=== PATIENT | female | born 1995 | race Caucasian/White ===

== ENCOUNTER 2017-03-28 17:21 | Emergency (ER) | payer BC ==
[~2017-03-28] VITALS: Ht 165.1 cm; Wt 49.4 kg
[~2017-03-28 17:21] MED LIST: AZEL30SP NAE; BCPILLS PO; BIOT1CAP8 PO; CETICHW4 PO; MNC100 PO
[2017-03-28 17:32] VITALS: TEMP 36.7; Ht 165.1 cm; Wt 49.4 kg
[2017-03-28] MEDS ORDERED: TOPI25TA99 PO (18:17)
[2017-03-28] MEDS ORDERED: ABL/5 PO (18:17)
--- NOTE | 2017-03-28 18:45 | EMERGENCY ROOM VISIT NOTE ---
History Report prepared by Juan Jose: Nicolas Church Under the Supervision of: Dr. Germán Dominguez M.D. First contact with patient: 18:34 Chief Complaint: MENTAL HEALTH EVALUATION Stated Complaint: MENTAL HEALTH/SUBSTANCE ABUSE History of Present Illness The patient is a 21 year old female [employer] student with a history of bipolar disorder who presents to the Emergency Room with complaints of worsening depression over the past week. She states that she takes medications for her mental health issues, but has not been taking them regularly of the past week. The patient states that she has been abusing alcohol recently, and per the patient's friends, the patient has been deteriorating, and they needed the patient to come here. Per the patient's friends, the patient has not been eating much for a while, which has been worsening, and the patient has not told her psychiatrist here about her eating habits. The patient has been noted to be worried about maintaining a certain weight. The patient states that she intentionally not eats as a way of control. She notes that she has a history of cutting. She denies any current suicidal or homicidal ideations. The patient also denies hearing abnormal voices, fevers, chills, cough, or congestion. Source of History: patient, friend Onset: Over past week Position: other (global - depression) Symptom Intensity: friends concerned Quality: other (not eating much) Timing: worsening Associated Symptoms: No fevers, No chills, No cough (or congestion) Note: Associated symptoms: Abusing alcohol, not taking prescribed medications well. Denies HI or SI. Review of Systems See HPI for pertinent positives and negatives. A total of ten systems were reviewed and were otherwise negative. Past Medical & Surgical Medical Problems: (1) Asthma Family History Cancer Diabetes mellitus Hypertension Social History Smoking Status: Never Smoker Alcohol Use: heavy Marital Status: single Housing Status: lives with roommate Occupation Status: [employer] student Current/Historical Medications Scheduled Aripiprazole (Abilify), 5 MG PO DAILY Control Pills ( Control Pills), 1 TAB PO DAILY Topiramate (Topamax ), 25 MG PO BID Scheduled PRN Azelastine Hcl-Fluticasone Pro (Dymista), 1 SPRY TY BID PRN for ALLERGIC REACTION Allergies Coded Allergies: Animal Dander (Unverified Allergy, Severe, ITCHY WATERY EYES, 03/28/17) Uncoded Allergies: SEASONAL (Allergy, Intermediate, ., 03/28/17) Physical Exam Vital Signs Date Time Temp Pulse Resp B/P (MAP) Pulse Ox O2 Delivery O2 Flow Rate FiO2 03/28/17 20:53 73 15 119/74 100 Room Air 03/28/17 19:14 71 16 124/79 99 Room Air 03/28/17 17:32 36.7 77 16 129/82 97 Room Air Physical Exam GENERAL: Awake, alert, thin-appearing but otherwise well-appearing, in no distress HENT: Normocephalic, atraumatic. Oropharynx unremarkable. EYES: Normal conjunctiva. Sclera non-icteric. NECK: Supple. No nuchal rigidity. FROM. No JVD. RESPIRATORY: Clear to auscultation. CARDIAC: Regular rate, normal rhythm. Extremities warm and well perfused. Pulses equal. ABDOMEN: Soft, non-distended. No tenderness to palpation. No rebound or guarding. No masses. RECTAL: Deferred. MUSCULOSKELETAL: Chest examination reveals no tenderness. The back is symmetrical on inspection without obvious abnormality. There is no CVA tenderness to palpation. No joint edema. LOWER EXTREMITIES: Calves are equal size bilaterally and non-tender. No edema. No discoloration. NEURO: Normal sensorium. No sensory or motor deficits noted. SKIN: No rash or jaundice noted. PSYCH: Denies suicidal or homicidal ideations. Medical Decision & Procedures Laboratory Results 03/28/17 18:59 Red Blood Count 4.66, Mean Corpuscular Volume 85.6, Mean Corpuscular Hemoglobin 29.0, Mean Corpuscular Hemoglobin Concent 33.8, Mean Platelet Volume 9.6, Neutrophils (%) (Auto) 57.7, Lymphocytes (%) (Auto) 31.4, Monocytes (%) (Auto) 9.3, Eosinophils (%) (Auto) 1.1, Basophils (%) (Auto) 0.3, Neutrophils # (Auto) 3.66, Lymphocytes # (Auto) 1.99, Monocytes # (Auto) 0.59, Eosinophils # (Auto) 0.07, Basophils # (Auto) 0.02 03/28/17 18:59 Test 03/28/17 18:48 03/28/17 18:57 03/28/17 18:59 Urine Color DK YELLOW Urine Appearance CLOUDY (CLEAR) Urine pH 7.5 (4.5-7.5) Urine Specific [place] 1.029 (1.000-1.030) Urine Protein NEG (NEG) Urine Glucose (UA) NEG (NEG) Urine Ketones 3+ (NEG) Urine Occult Blood NEG (NEG) Urine Nitrite NEG (NEG) Urine Bilirubin NEG (NEG) Urine Urobilinogen NEG (NEG) Urine Leukocyte Esterase MODERATE (NEG) Urine WBC (Auto) 10-30 /hpf (0-5) Urine RBC (Auto) 10-30 /hpf (0-4) Urine Hyaline Casts (Auto) 5-10 /lpf (0-5) Urine Epithelial Cells (Auto) >30 /lpf (0-5) Urine Bacteria (Auto) 3+ (NEG) Urine Test NEG (NEG) Urine Opiates Screen NEG (NEG) Urine Methadone, Qualitative NEG (NEG) Urine Barbiturates NEG (NEG) Urine Phencyclidine (PCP) Level NEG (NEG) Ur Amphetamine/Methamphetamine NEG (NEG) MDMA (Ecstasy) Screen NEG (NEG) Urine Benzodiazepines Screen POS (NEG) Urine Cocaine Metabolite NEG (NEG) Urine Marijuana (THC) NEG (NEG) Bedside Glucose 103 mg/dl (70-90) White Blood Count 6.34 K/uL (4.8-10.8) Red Blood Count 4.66 M/uL (4.2-5.4) Hemoglobin 13.5 g/dL (12.0-16.0) Hematocrit 39.9 % (37-47) Mean Corpuscular Volume 85.6 fL (80-100) Mean Corpuscular Hemoglobin 29.0 pg (25-34) Mean Corpuscular Hemoglobin Concent 33.8 g/dl (32-36) Platelet Count 311 K/uL (130-400) Mean Platelet Volume 9.6 fL (7.4-10.4) Neutrophils (%) (Auto) 57.7 % Lymphocytes (%) (Auto) 31.4 % Monocytes (%) (Auto) 9.3 % Eosinophils (%) (Auto) 1.1 % Basophils (%) (Auto) 0.3 % Neutrophils # (Auto) 3.66 K/uL (1.4-6.5) Lymphocytes # (Auto) 1.99 K/uL (1.2-3.4) Monocytes # (Auto) 0.59 K/uL (0.11-0.59) Eosinophils # (Auto) 0.07 K/uL (0-0.5) Basophils # (Auto) 0.02 K/uL (0-0.2) RDW Standard Deviation 45.0 fL (36.4-46.3) RDW Coefficient of Variation 14.5 % (11.5-14.5) Immature Granulocyte % (Auto) 0.2 % Immature Granulocyte # (Auto) 0.01 K/uL (0.00-0.02) Anion Gap 7.0 mmol/L (3-11) Est Creatinine Clear Calc Drug Dose 69.4 ml/min Estimated GFR () 93.3 Estimated GFR (Non- 80.5 BUN/Creatinine Ratio 7.3 (10-20) Calcium Level 8.9 mg/dl (8.5-10.1) Phosphorus Level 1.7 mg/dl (2.5-4.9) Magnesium Level 2.1 mg/dl (1.8-2.4) Total Bilirubin 0.8 mg/dl (0.2-1) Direct Bilirubin 0.2 mg/dl (0-0.2) Aspartate Amino Transf (AST/SGOT) 16 U/L (15-37) Alanine Aminotransferase (ALT/SGPT) 25 U/L (12-78) Alkaline Phosphatase 37 U/L (45-117) Total Protein 7.9 gm/dl (6.4-8.2) Albumin 3.9 gm/dl (3.4-5.0) Globulin 4.0 gm/dl (2.5-4.0) Albumin/Globulin Ratio 1.0 (0.9-2) Thyroid Stimulating Hormone (TSH) 1.800 uIu/ml (0.300-4.500) Ethyl Alcohol mg/dL < 3.0 mg/dl (0-3) Laboratory results reviewed by me ECG Indication: toxicologic Rate (beats per minute): 82 Rhythm: normal sinus Findings: no acute ischemic change, other (normal axis) ED Course 1834: The patient was evaluated in room A8. A complete history and physical exam was performed. 2037: I was notified by the psychiatric manager case management that the patient signed a release for her psychiatric provider. She has an appointment with her psychiatrist and she will go to the appointment. The patient is agreeable with the plan, and she will be discharged. Medical Decision I reviewed the patient's past medical history, medications, and the nursing notes as described above. Differential diagnosis: Etiologies such as mood disorder, infection, hypoglycemia, electrolyte abnormalities, cardiac sources, intracerebral event, toxicologic, neurologic, as well as others were entertained. The patient is 21 y/o woman with a pmhx of depression who presents to the emergency department accompanied by her friends who are concerned for the patient's worsening depression, increased alcohol abuse, noncompliance with her medications, and worsening anorexia in attempt to "maintain a certain weight" per HPI. On arrival the patient is thin appearing but well-appearing in NAD, AFVSS. Labs unremarkable. EKG unremarkable with normal intervals. Patient medically cleared. Psych CM further interviewed patient and no concerns for safety at this time given the patient denies SI/HI and has good outpatient f/u with local psychiatrist. Patient signed waiver so we may send information for today's visit to her provider so she may obtain prompt f/u regarding her current behaviors. Of note, UA dirty and patient denies any urinary sx. Will wait for cx to inform ?need for treatment. Findings and plan for follow-up reviewed with patient. Patient agreeable and d/c'd per discharge instructions. Medication Reconcilliation Current Medication List: was personally reviewed by me Blood Pressure Screening Patient's blood pressure: Normal blood pressure Impression Primary Impression: Depression Additional Impression: Anorexia nervosa Scribe Attestation The scribe's documentation has been prepared under my direction and personally reviewed by me in its entirety. I confirm that the note above accurately reflects all work, treatment, procedures, and medical decision making performed by me. Departure Information Dispostion Home / Self-Care Referrals No Doctor, Assigned (PCP) Patient Instructions Addiction Alcohol, Depression Causes, ED Alcohol Abuse, ED Anorexia Nervosa, My [facility] Additional Instructions Please follow up with your psychiatrist next week for re-evaluation for your depression and eating disorder. You should not abuse alcohol or drugs. Otherwise, your exam, EKG, and lab results did not show signs of an emergent condition at this time. Return to the emergency department for worsening symptoms as described in the accompanying instructions. Problem Qualifiers
[2017-03-28 19:22] LABS: BASO % 0.3 %; BASO ABS # 0.02 K/uL (0-0.2); EOS % 1.1 %; EOS ABS # 0.07 K/uL (0-0.5); HEMATOCRIT 39.9 % (37-47); HEMOGLOBIN 13.5 g/dL (12.0-16.0); IG# 0.01 K/uL (0.00-0.02); LYMPH % 31.4 %; LYMPH ABS # 1.99 K/uL (1.2-3.4); MEAN CELL VOLUME 85.6 fL (80-100); MEAN CORPUSCULAR HGB CONC 33.8 g/dl (32-36); MEAN PLATELET VOLUME 9.6 fL (7.4-10.4); MONO % 9.3 %; MONO ABS # 0.59 K/uL (0.11-0.59); NEUT % 57.7 %; NEUT ABS # 3.66 K/uL (1.4-6.5); PLATELET COUNT 311 K/uL (130-400); RED CELL DISTRIBUTION WIDTH CV 14.5 % (11.5-14.5); WHITE BLOOD COUNT 6.34 K/uL (4.8-10.8)
[2017-03-28 20:15] LABS: ALBUMIN 3.9 gm/dl (3.4-5.0); CALCIUM 8.9 mg/dl (8.5-10.1); POTASSIUM 3.3 mmol/L (3.5-5.1)
[2017-03-28 20:26] LABS: PHOSPHORUS 1.7 mg/dl (2.5-4.9); TOTAL PROTEIN 7.9 gm/dl (6.4-8.2)
[2017-03-28 20:53] VITALS: BP 119/74; PULSE 73; O2SAT 100
== END 2017-03-28 21:21 | disposition home or self-care (01) ==
LOC: C.EDB 17:26 → C.EDA 21:21
DX: F32.9 Major depressive disorder, single episode, unspecified (principal); F50.00 Anorexia nervosa, unspecified; J45.909 Unspecified asthma, uncomplicated; Z79.899 Other long term (current) drug therapy; Z91.09 Other allergy status, other than to drugs and biological substances; Z80.9 Family history of malignant neoplasm, unspecified; Z83.3 Family history of diabetes mellitus; Z82.49 Family history of ischemic heart disease and other diseases of the circulatory system

== ENCOUNTER 2017-04-20 04:00 | Inpatient (IN) | payer BC, OTHER ==
[~2017-04-20] VITALS: Ht 165.1 cm; Wt 49.2 kg
[~2017-04-20 04:00] MED LIST changes: +ABL/5 PO; -BIOT1CAP8 PO; -CETICHW4 PO; -MNC100 PO; +TOPI25TA99 PO
--- NOTE | 2017-04-20 04:18 | EMERGENCY ROOM VISIT NOTE ---
History Report prepared by Juan Jose: Suhail Bhatia Under the Supervision of: Dr. Cristina Bell D.O. First contact with patient: 04:03 Chief Complaint: OVERDOSE (INTENTIONAL) Stated Complaint: OVERDOSE/ETOH History of Present Illness HPI limited due to an altered mental state secondary to alcohol intoxication. The patient is a 21 year old female who presents to the Emergency Room with complaints of a recent overdose. Nurse states that the patient took a "fistful" of Seroquel after she got home from a night of drinking. Nurse adds that the patient had 4 alcoholic mixed drinks prior to taking the Seroquel. Patient states she was trying to commit suicide. Patient states that she tried to commit suicide because "she was upset with herself for falling into her urges". Patient states that she normally drinks on the weekends and in excessive amounts. She states that she went out drinking tonight with her friends. Patient adds that she told her friend about taking the Seroquel and that her friend called an ambulance. Patient states that she lives by herself. Patient states that her parents are aware of her mental health problems. She adds that they do not know that she is at the currently at the hospital. Patient states that the Seroquel is hers. She states that she does not use it anymore because she was prescribed another medication. Patient denies a history of suicidal ideations. Patient states she has never been an inpatient at a psychiatric institute. She states that she has been seen as an outpatient. She states that her psychiatrist is Martina Clifford PA-C. Patient denies any abdominal pain or falls. Patient denies a history of diabetes or heart problems. She states that she is a [employer] student. Patient states that she is from [place], [place]. Source of History: patient History Limited By: AMS (secondary to alcohol intoxication) Review of Systems ROS limited due to altered mental state secondary to alcohol intoxication. Past Medical & Surgical Medical Problems: (1) Asthma Bipolar Disorder Family History Cancer Diabetes mellitus Hypertension Social History Smoking Status: Never Smoker Alcohol Use: heavy Marital Status: single Housing Status: lives with roommate Occupation Status: [employer] student Current/Historical Medications Scheduled Aripiprazole (Abilify), 5 MG PO DAILY Control Pills ( Control Pills), 1 TAB PO DAILY Cetirizine (Zyrtec), 10 MG PO DAILY Multivitamin (Multivitamin), 1 TAB PO DAILY Topiramate (Topamax ), 25 MG PO BID Allergies Coded Allergies: Animal Dander (Unverified Allergy, Severe, ITCHY WATERY EYES, 04/20/17) Uncoded Allergies: SEASONAL (Allergy, Intermediate, ., 03/28/17) Physical Exam Vital Signs Date Time Temp Pulse Resp B/P (MAP) Pulse Ox O2 Delivery O2 Flow Rate FiO2 04/20/17 09:30 91 18 100/62 96 Room Air 04/20/17 08:48 91 16 112/69 95 Room Air 04/20/17 08:17 103 04/20/17 07:54 103 16 123/59 95 Room Air 04/20/17 07:01 88 14 93/43 95 04/20/17 06:31 96 14 102/49 94 04/20/17 06:01 89 14 94/48 95 04/20/17 05:51 89 15 96 04/20/17 05:36 89 14 96 04/20/17 05:31 95/45 04/20/17 05:21 91 14 96 04/20/17 05:06 101 17 98 04/20/17 05:01 114/70 04/20/17 04:51 117 16 96 04/20/17 04:46 36.6 116 99 Room Air 04/20/17 04:36 108 17 98 04/20/17 04:31 122/68 04/20/17 04:30 124 14 98 Room Air 04/20/17 04:15 138 17 04/20/17 04:10 132 04/20/17 04:01 134/85 99 Room Air Physical Exam General: Patient appears intoxicated and has slightly slurred speech. HEENT: Head - normocephalic and atraumatic Pupils are equal, round, and reactive to light. Extraocular eye muscles are intact, and moderate sclera injection. Nose - moist nasal mucosa without discharge. Mouth - moist buccal mucosa. Oropharynx is nonerythematous and there is no tonsillar exudate or edema noted. Neck: Supple; no JVD, nuchal rigidity, cervical lymphadenopathy. Heart:Tachycardic rate and rhythm. There is a normal S1 and S2 with no murmurs , clicks, or gallops appreciated. Lungs: Clear to auscultation bilaterally with no wheezes, rales, or rhonchi. Abdomen: Soft, completely nontender, nondistended, with good bowel sounds. There are no palpable pulsatile masses or hepatosplenomegaly. There is no guarding, rigidity, or rebound noted. Extremities: No evidence of cyanosis, clubbing, or edema. There are easily palpable peripheral pulses. Skin: warm and dry with good turgor and no rashes. Psych: Admits to suicide attempt by overdose. Medical Decision & Procedures Laboratory Results 04/20/17 04:15 04/20/17 04:15 Test 04/20/17 04:15 04/20/17 04:55 Red Blood Count 4.31 M/uL (4.2-5.4) Mean Corpuscular Volume 85.8 fL (80-100) Mean Corpuscular Hemoglobin 29.2 pg (25-34) Mean Corpuscular Hemoglobin Concent 34.1 g/dl (32-36) RDW Standard Deviation 46.0 fL (36.4-46.3) RDW Coefficient of Variation 14.7 % (11.5-14.5) Mean Platelet Volume 9.3 fL (7.4-10.4) Anion Gap 11.0 mmol/L (3-11) Est Creatinine Clear Calc Drug Dose 84.6 ml/min Estimated GFR () 116.8 Estimated GFR (Non- 100.8 BUN/Creatinine Ratio 8.9 (10-20) Calcium Level 8.0 mg/dl (8.5-10.1) Total Bilirubin 0.2 mg/dl (0.2-1) Direct Bilirubin < 0.1 mg/dl (0-0.2) Aspartate Amino Transf (AST/SGOT) 16 U/L (15-37) Alanine Aminotransferase (ALT/SGPT) 23 U/L (12-78) Alkaline Phosphatase 38 U/L (45-117) Total Protein 7.1 gm/dl (6.4-8.2) Albumin 3.4 gm/dl (3.4-5.0) Thyroid Stimulating Hormone (TSH) 3.310 uIu/ml (0.300-4.500) Salicylates Level < 1.7 mg/dl (2.8-20) Acetaminophen Level < 2 ug/ml (10-30) Ethyl Alcohol mg/dL 235.0 mg/dl (0-3) Urine Color YELLOW Urine Appearance CLEAR (CLEAR) Urine pH 6.0 (4.5-7.5) Urine Specific [place] 1.017 (1.000-1.030) Urine Protein NEG (NEG) Urine Glucose (UA) NEG (NEG) Urine Ketones NEG (NEG) Urine Occult Blood TRACE (NEG) Urine Nitrite NEG (NEG) Urine Bilirubin NEG (NEG) Urine Urobilinogen NEG (NEG) Urine Leukocyte Esterase TRACE (NEG) Urine WBC (Auto) 1-5 /hpf (0-5) Urine RBC (Auto) 0-4 /hpf (0-4) Urine Hyaline Casts (Auto) 0 /lpf (0-5) Urine Epithelial Cells (Auto) >30 /lpf (0-5) Urine Bacteria (Auto) 1+ (NEG) Urine Test NEG (NEG) Urine Opiates Screen NEG (NEG) Urine Methadone, Qualitative NEG (NEG) Urine Barbiturates NEG (NEG) Urine Phencyclidine (PCP) Level NEG (NEG) Ur Amphetamine/Methamphetamine NEG (NEG) MDMA (Ecstasy) Screen NEG (NEG) Urine Benzodiazepines Screen NEG (NEG) Urine Cocaine Metabolite NEG (NEG) Urine Marijuana (THC) NEG (NEG) Laboratory results per my review. ECG Indication: altered mental status Rate (beats per minute): 101 Rhythm: sinus tachycardia Findings: no acute ischemic change, no ectopy ED Course 0415: Past medical records reviewed. The patient was evaluated in room B6. A complete history and physical exam was performed. Labs were drawn as above. The patient was observed on a personnel monitor and pulse oximeter. She had a twelve-lead EKG as described above. 0435: Patient's electrocardiogram was interpreted by me. 0522: Patient is sound asleep with stable vital signs. Patient's friends are present now and they have voiced significant concern for her safety. Friends plan to be present for patient's psychiatric evaluation. They state that if the patient does not voluntarily sign herself in then they will do a petitioning statement. 0700: The patient is sleeping at this time and remains hemodynamically stable. 0830: Patient was signed out to Dr. Dominguez at change of shifts. Medical Decision The patient is a 21 year old female who presents to the ED with a recent overdose. Differential diagnosis includes intentional overdose, suicide attempt , mood disorder, exacerbation of bipolar disorder, and alcohol overdose. Lab results show alcohol = 235, negative tox screen, Tylenol and Aspirin levels are negative, normal TSH and LFTs, glucose = 123, normal renal function, negative , urinalysis shows 1+ bacteria with trace blood and leukocyte esterase, white blood cell count normal, and normal H&H. The patient has been seen here in our emergency department previously for depression. It seems that she attempted to harm herself tonight by drinking alcohol and taking a handful of Seroquel. Poison Control Center was contacted and the patient was observed for this polysubstance overdose. Once she is medically cleared, she will be evaluated by psychiatry for inpatient psychiatric care. Medication Reconcilliation Current Medication List: was personally reviewed by me Blood Pressure Screening Patient's blood pressure: Normal blood pressure Blood pressure disposition: Did not require urgent referral Impression Primary Impression: Polysubstance overdose Additional Impression: Suicide attempt Scribe Attestation The scribe's documentation has been prepared under my direction and personally reviewed by me in its entirety. I confirm that the note above accurately reflects all work, treatment, procedures, and medical decision making performed by me. Departure Information Dispostion Still a Patient Referrals No Doctor, Assigned (PCP) Forms HOME CARE DOCUMENTATION FORM, IMPORTANT VISIT INFORMATION, WORK / SCHOOL INSTRUCTIONS Patient Instructions My [facility] Problem Qualifiers Primary Impression: Polysubstance overdose Encounter type: initial encounter Injury intent: accidental or unintentional Qualified Codes: T50.901A - Poisoning by unspecified drugs, medicaments and biological substances, accidental (unintentional), initial encounter
[2017-04-20] MEDS ORDERED: CETI10TA84 PO (04:33)
[2017-04-20 04:34] LABS: HEMOGLOBIN 12.6 g/dL (12.0-16.0); MEAN CELL VOLUME 85.8 fL (80-100); MEAN CORPUSCULAR HEMOGLOBIN 29.2 pg (25-34); MEAN CORPUSCULAR HGB CONC 34.1 g/dl (32-36); MEAN PLATELET VOLUME 9.3 fL (7.4-10.4); PLATELET COUNT 327 K/uL (130-400); RED CELL DISTRIBUTION WIDTH CV 14.7 % (11.5-14.5); WHITE BLOOD COUNT 9.21 K/uL (4.8-10.8)
[2017-04-20] MEDS ORDERED: MULT-506 PO (04:34)
[2017-04-20 04:53] LABS: ALBUMIN 3.4 gm/dl (3.4-5.0); ALT/SGPT 23 U/L (12-78); AST/SGOT 16 U/L (15-37); BLOOD UREA NITROGEN 7 mg/dl (7-18); CARBON DIOXIDE 21 mmol/L (21-32); CREATININE 0.83 mg/dl (0.60-1.20); GLUCOSE 123 mg/dl (70-99); POTASSIUM 3.2 mmol/L (3.5-5.1); SODIUM 141 mmol/L (136-145)
[2017-04-20 05:04] LABS: ALKALINE PHOSPHATASE 38 U/L (45-117); TOTAL PROTEIN 7.1 gm/dl (6.4-8.2)
[2017-04-20] MEDS ORDERED: ALUMINUM/MAGNESIUM SUSP 30 ML UDC PO PRN (13:15)
[2017-04-20] MEDS ORDERED: MAGNESIUM HYDROXIDE SUSP 30 ML UDC PO PRN (13:15)
[2017-04-20] MEDS ORDERED: ACETAMINOPHEN 325 MG TAB PO PRN (13:15)
[2017-04-20] MEDS ORDERED: LORAZEPAM 1 MG TAB PO PRN (13:15)
[2017-04-20] MEDS ORDERED: hydrOXYzine HCL 25 MG TAB PO PRN ×2 (13:15)
[2017-04-20] MEDS ORDERED: SODIUM CHLORIDE 0.65% NA SOLN 45 ML (OCEAN) PRN (13:15)
[2017-04-20] MEDS ORDERED: BISMUTH SUBSALICYLATE PER ML OMNICELL CHARGE PO PRN (13:15)
[2017-04-20 13:29] VITALS: BP 122/84; PULSE 99; TEMP 36.9; Ht 165.1 cm; Wt 49.2 kg
[2017-04-20] MEDS ORDERED: POTASSIUM CHLORIDE 10 MEQ TABCR PO STA (13:32)
[2017-04-20 14:06] VITALS: O2SAT 98
[2017-04-20] MEDS ORDERED: INFLUENZA ADMINISTRATION CHARGE ONE (16:00)
[2017-04-20] MEDS ORDERED: INFLUENZA VIRUS QUAD VACCINE 0.5 ML SYR IM. ONE (16:00)
[2017-04-20 16:04] VITALS: BP 117/80; PULSE 88; TEMP 36.9
[2017-04-20 20:48] VITALS: BP 121/77; PULSE 83; TEMP 36.9
[2017-04-20] MEDS: TOPIRAMATE 25 MG TAB PO SCH (21:05)
[2017-04-20] MEDS ORDERED: NURSING VERBAL MED ORDER ONE (21:15)
[2017-04-21 06:53] VITALS: BP_SYST 115; BP_SYST 119; BP_DIAS 75; BP_DIAS 84; PULSE 65; PULSE 79; TEMP 36.8
[2017-04-21 07:55] VITALS: BP 118/70; PULSE 74; TEMP 36.9
[2017-04-21] MEDS ORDERED: ETHINYL ESTRAD PO SCH (09:00)
[2017-04-21] MEDS ORDERED: NORETHINDRONE PO SCH (09:00)
[2017-04-21] MEDS: TOPIRAMATE 25 MG TAB PO SCH (09:21)
[2017-04-21] MEDS: CETIRIZINE HCL 10 MG TAB PO SCH (09:21)
[2017-04-21] MEDS: ARIPIprazole TAB 5 MG TAB PO SCH (09:21)
[2017-04-21] MEDS: MULTIVITAMIN TAB PO SCH (09:21)
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
[2017-04-21 12:50] VITALS: BP 130/83; PULSE 108; TEMP 36.6
[2017-04-21] MEDS: NORETHINDRONE PO SCH (17:08)
[2017-04-21] MEDS: ETHINYL ESTRAD PO SCH (17:08)
[2017-04-21 17:12] VITALS: BP 121/84; PULSE 81; TEMP 36.6
[2017-04-21 20:44] VITALS: BP 138/86; PULSE 103; TEMP 36.8
[2017-04-22 07:03] VITALS: BP_SYST 106; BP_SYST 110; BP_DIAS 67; BP_DIAS 71; PULSE 68; PULSE 76; TEMP 37
[2017-04-22 08:37] VITALS: BP 143/88; PULSE 73; TEMP 36.8
[2017-04-22] MEDS: CETIRIZINE HCL 10 MG TAB PO SCH (08:38)
[2017-04-22] MEDS: MULTIVITAMIN TAB PO SCH (08:38)
[2017-04-22] MEDS: ARIPIprazole TAB 5 MG TAB PO SCH (08:38)
[2017-04-22 12:27] VITALS: BP 119/83; PULSE 78; TEMP 36.6
--- NOTE | 2017-04-22 13:26 | Psychiatric Progress Notes ---
Progress Note Date of Service Apr 22, 2017. Interval History 21-year-old [employer] student admitted to our unit voluntarily following a toxic ingestion of Seroquel and alcohol. Chief Complaint "Less bored". Subjective Patient was seen & assessed interval progress reviewed with Treatment Team. The patient says that she is adjusting to the unit and relating better to her peers. They are banding together during free time over cards to pass the time. She says that she is regretful of her suicide attempt, saying that she wants to live and now realizes that she has friends and family who support her. Her mother drove up last evening and her father will be coming today for a family meeting later this afternoon. She thinks that her parents were not surprised by her hospitalization, knowing that she had been struggling with depression. She is renewing her efforts to go without alcohol moving forward. She said that she was without alcohol for 3 week in March. She went to the bars with her friends, but chose not to drink, even when someone would offer her "just a sip". She is trying to get past her breakup by telling herself that she has to work on herself before she can be healthy enough to be in a relationship. She denies side effects to meds. Denies anxiety or jitteriness. Review of Systems Constitutional: No fever, No chills, No sweats, No weight loss, No weakness, No fatigue, No problem reported ENT: No hearing loss, No unusual epistaxis, No nasal symptoms, No sore throat, No tinnitus, No dental problems, No trouble swallowing, No problem reported Respiratory: No cough, No sputum, No wheezing, No shortness of breath, No dyspnea on exertion, No dyspnea at rest, No hemoptysis, No problem reported Cardiovascular: No chest pain, No orthopnea, No PND, No edema, No claudication , No palpitations, No problem reported Abdomen: No pain, No nausea, No vomiting, No diarrhea, No constipation, No GI bleeding, No problem reported Musculoskeletal: No joint pain, No muscle pain, No swelling, No calf pain, No problem reported Neurologic: No memory loss, No paralysis, No weakness, No numbness/tingling, No vertigo, No balance problems, No problem reported Psychiatric: + depression symptoms (improving) Integumentary: No rash, No itch, No new/changing skin lesions, No color change , No bleeding, No problem reported Sleep Information Total Hours of Sleep: 7.00 Meal Information Percent of Breakfast Consumed: 100 Percent of Lunch Consumed: 75 Percent of Dinner Consumed: 100 Mental Status Exam During interview pt is: alert and oriented, cooperative Appearance: appropriately dressed, appropriately groomed Eye contact is: good Motor behavior is: no abnormal motor movements Speech: normal in rate, rhythm & volume Affect: depressed, blunted Mood is: depressed, anxious Thought process: goal directed Thought content: reality based without delusions Suicidal thought are: present, Plan: present (status post Seroquel overdose) Homicidal thoughts are: denied Hallucinations: denies auditory, denies visual Cognition: memory grossly intact (with the exception of some of the events leading to hospitalization due to alcohol ingestion), attention grossly intact, language grossly intact Intelligence estimated to be: average Insight: impaired Judgement: impaired Impression Adjusting to the support and structure of the milieu. Tolerating initial doses of lamictal and ongoing abilify. Family meeting scheduled for this afternoon with parents. Nursing stated that parents want her to return home, so this will need to be discussed as she wants to finish her semester and complete her degree. Plan (1) bipolar 2 disorder, depressed, severe, without 2/5 - Continue Abilify 5 mg daily for now but reevaluated after obtaining outpatient records - Discontinue Topamax as a mood stabilizer in favor of Lamictal 25 mg daily, titrating as tolerated. Risks, benefits, alternatives have been reviewed and accepted including risk for Perez-Arvin syndrome - Add Zoloft 25 mg daily to target mood and anxiety, with caution to activation in view of bipolar diagnosis - Continue use of Vistaril when necessary for anxiety. Unclear at this time if anxiety represents a chronic generalized anxiety or whether this is related only to her times of depression we will continue to evaluate. - Every 15 minute checks for safety - Encourage participation in group and individual counseling - Obtain outpatient records from an coordinate aftercare with her current providers - Assist the patient to learn and utilize healthy coping strategies - Family meeting if indicated 2/6 - Continue current meds - Family meeting this afternoon. (2) Alcohol abuse 2/5 - Abstain from alcohol for the foreseeable future - Recommend outpatient substance use treatment - The patient's AUDIT score suggests problematic drinking (Zone III WHO). Brief intervention was offered and accepted Intervention (if performed) was greater than 5 min in length. Brief interventions include: 1. Assess Readiness to Quit, 2. Advise: Help Patient to Reduce or Abstain from Alcohol, 3. Agree: Set Specific, Feasible Goals, 4. Assist: Anticipate barriers, Problem-Solving Solutions. Social work to 5. Arrange: Referrals to appropriate treatment. Summary of intervention: The patient is in precontemplation stage with regards to transtheoretical model of change. The patient is advised to decrease alcohol consumption due to depressant effects and risk of interactions with prescription medications. The patient agreed to stopping her drinking and will be provided with recovery materials to continue to education self on how to cope with their condition without drinking. Dr. Ashley Devlin has personally been involved in the review of the above case and the development of recommendations. Discharge / Aftercare Planning Primary Care Physician: Name: Dr. Alfie Prather Psychiatrist: Name: Martina Johnson Date of Appointment: May 13, 2017 Time of Appointment: 8:45 am Appointment Notes: [address] [facility] [address] Therapist: Name: OokbeeRola Thomas Date of Appointment: Apr 28, 2017 Time of Appointment: 3:00 pm Appointment Notes: [address] [address] Visit Code E&M Code: 85866 Inventory Assets Strengths: Intelligence, desire to get better Needs: To abstain from alcohol and any other abusable substance Risk Factors Assessment : Yes /single/: Yes Higher / Fall in social status: No Health problems: No Mental Health Diagnoses: Yes Substance use disorders: Yes Previous attempt: Yes Previous psychiatric stay: No Hopelessness: No Smoker: No Protective Factors Assessment Bahai beliefs: No : No Responsible for young children: No Employed: No Stable relationships: No Supportive family: Yes Good rapport with provider: Yes Data Vital Signs Last 24 Hrs: Date Time Temp Pulse Resp B/P (MAP) Pulse Ox O2 Delivery O2 Flow Rate FiO2 04/22/17 08:37 36.8 73 16 143/88 04/22/17 07:03 37.0 76 16 106/67 68 110/71 04/21/17 20:44 36.8 103 16 138/86 04/21/17 17:12 36.6 81 16 121/84 04/21/17 12:50 36.6 108 16 130/83 Meds Administered Last 24 Hrs: Meds Administered (Past 24Hrs) Medications (Trade) Dose Ordered Sig/Mindy Route Start Time Stop Time Status Last Admin Dose Admin Aripiprazole (Abilify Tab) 5 mg DAILY PO 04/21/17 09:00 05/21/17 08:59 04/22/17 08:38 5 MG Cetirizine HCl (zyrTEC TAB) 10 mg DAILY PO 04/21/17 09:00 05/21/17 08:59 04/22/17 08:38 10 MG Multivitamins (Multivitamin Tab) 1 tab DAILY PO 04/21/17 09:00 05/21/17 08:59 04/22/17 08:38 1 TAB Topiramate (Topamax Tab) 25 mg BID PO 04/20/17 22:00 04/21/17 11:15 DC 04/21/17 09:21 25 MG Potassium Chloride (Klor-Con M10) 40 meq NOW STAT PO 04/20/17 13:32 04/20/17 13:33 DC 04/20/17 14:01 40 MEQ Ethinyl Estradiol/ Norethindrone ( (21 Day)) 1 tab DAILY PO 04/21/17 09:00 04/21/17 09:00 DC 04/20/17 21:12 1 TAB Ethinyl Estradiol/ Norethindrone ( (21 Day)) 1 tab DAILY@1700 PO 04/21/17 17:00 05/21/17 16:59 04/21/17 17:08 1 TAB Lamotrigine (Lamictal Tab) 25 mg HS PO 04/21/17 22:00 05/21/17 21:59 04/21/17 22:42 25 MG Lab Results Last 24 Hrs: 04/20/17 04:15 04/20/17 04:15 Test 04/20/17 04:15 04/20/17 04:55 Red Blood Count 4.31 M/uL (4.2-5.4) Mean Corpuscular Volume 85.8 fL (80-100) Mean Corpuscular Hemoglobin 29.2 pg (25-34) Mean Corpuscular Hemoglobin Concent 34.1 g/dl (32-36) RDW Standard Deviation 46.0 fL (36.4-46.3) RDW Coefficient of Variation 14.7 % (11.5-14.5) Mean Platelet Volume 9.3 fL (7.4-10.4) Anion Gap 11.0 mmol/L (3-11) Est Creatinine Clear Calc Drug Dose 84.6 ml/min Estimated GFR () 116.8 Estimated GFR (Non- 100.8 BUN/Creatinine Ratio 8.9 (10-20) Calcium Level 8.0 mg/dl (8.5-10.1) Total Bilirubin 0.2 mg/dl (0.2-1) Direct Bilirubin < 0.1 mg/dl (0-0.2) Aspartate Amino Transf (AST/SGOT) 16 U/L (15-37) Alanine Aminotransferase (ALT/SGPT) 23 U/L (12-78) Alkaline Phosphatase 38 U/L (45-117) Total Protein 7.1 gm/dl (6.4-8.2) Albumin 3.4 gm/dl (3.4-5.0) Thyroid Stimulating Hormone (TSH) 3.310 uIu/ml (0.300-4.500) Salicylates Level < 1.7 mg/dl (2.8-20) Acetaminophen Level < 2 ug/ml (10-30) Ethyl Alcohol mg/dL 235.0 mg/dl (0-3) Urine Color YELLOW Urine Appearance CLEAR (CLEAR) Urine pH 6.0 (4.5-7.5) Urine Specific [place] 1.017 (1.000-1.030) Urine Protein NEG (NEG) Urine Glucose (UA) NEG (NEG) Urine Ketones NEG (NEG) Urine Occult Blood TRACE (NEG) Urine Nitrite NEG (NEG) Urine Bilirubin NEG (NEG) Urine Urobilinogen NEG (NEG) Urine Leukocyte Esterase TRACE (NEG) Urine WBC (Auto) 1-5 /hpf (0-5) Urine RBC (Auto) 0-4 /hpf (0-4) Urine Hyaline Casts (Auto) 0 /lpf (0-5) Urine Epithelial Cells (Auto) >30 /lpf (0-5) Urine Bacteria (Auto) 1+ (NEG) Urine Test NEG (NEG) Urine Opiates Screen NEG (NEG) Urine Methadone, Qualitative NEG (NEG) Urine Barbiturates NEG (NEG) Urine Phencyclidine (PCP) Level NEG (NEG) Ur Amphetamine/Methamphetamine NEG (NEG) MDMA (Ecstasy) Screen NEG (NEG) Urine Benzodiazepines Screen NEG (NEG) Urine Cocaine Metabolite NEG (NEG) Urine Marijuana (THC) NEG (NEG)
[2017-04-22] MEDS ORDERED: NURSING VERBAL MED ORDER ONE (16:00)
[2017-04-22 17:10] VITALS: BP 134/93; PULSE 86; TEMP 36.8
[2017-04-22] MEDS: ETHINYL ESTRAD PO SCH (17:13)
[2017-04-22] MEDS: NORETHINDRONE PO SCH (17:13)
[2017-04-22 21:42] VITALS: BP 124/85; PULSE 83; TEMP 36.8
[2017-04-22] MEDS: RETIN A EXT SCH (21:47)
[2017-04-23 06:56] VITALS: BP_SYST 105; BP_SYST 119; BP_DIAS 69; BP_DIAS 85; PULSE 61; PULSE 64; TEMP 36.8
[2017-04-23] MEDS: CETIRIZINE HCL 10 MG TAB PO SCH (08:58)
[2017-04-23] MEDS: MULTIVITAMIN TAB PO SCH (08:58)
[2017-04-23] MEDS: ARIPIprazole TAB 5 MG TAB PO SCH (08:58)
--- NOTE | 2017-04-23 13:34 | Psychiatric Progress Notes ---
Progress Note Date of Service Apr 23, 2017. Interval History 21-year-old [employer] student admitted to our unit voluntarily following a toxic ingestion of Seroquel and alcohol. Chief Complaint "I think well". Subjective Patient was seen & assessed interval progress reviewed with Treatment Team. Staff report she had a family meeting with her parents yesterday, who are supportive. The patient felt the meeting went well, and was pleased that her parents were receptive to her desire to stay in school, as they initially wanted her to withdrawal. Today the patient reports she thinks she is doing well, her mood is improving, and she is tolerating meds well. She thinks her meeting with parents went well, notes she doesn't like telling them specifics about her life, and felt they didn't understand this, but thinks she was able to explain it to them in the meeting. She denies SI, and is working on healthier coping skills. Sleep Information Total Hours of Sleep: 6.50 Meal Information Percent of Breakfast Consumed: 100 Percent of Lunch Consumed: 75 Percent of Dinner Consumed: 100 Mental Status Exam During interview pt is: alert and oriented, cooperative Appearance: appropriately dressed, appropriately groomed Eye contact is: good Motor behavior is: no abnormal motor movements Speech: normal in rate, rhythm & volume Affect: blunted Mood is: other ("better") Thought process: goal directed Thought content: reality based without delusions Suicidal thought are: denied Homicidal thoughts are: denied Hallucinations: denies auditory, denies visual Cognition: memory grossly intact (with the exception of some of the events leading to hospitalization due to alcohol ingestion), attention grossly intact, language grossly intact Intelligence estimated to be: average Insight: impaired Judgement: impaired Impression Improving with respect to mood, had good meeting with parents and working on healthier coping skills. Tolerating medications well. Plan (1) bipolar 2 disorder, depressed, severe, without 2/5 - Continue Abilify 5 mg daily for now but reevaluated after obtaining outpatient records - Discontinue Topamax as a mood stabilizer in favor of Lamictal 25 mg daily, titrating as tolerated. Risks, benefits, alternatives have been reviewed and accepted including risk for Perez-Arvin syndrome - Add Zoloft 25 mg daily to target mood and anxiety, with caution to activation in view of bipolar diagnosis - Continue use of Vistaril when necessary for anxiety. Unclear at this time if anxiety represents a chronic generalized anxiety or whether this is related only to her times of depression we will continue to evaluate. - Every 15 minute checks for safety - Encourage participation in group and individual counseling - Obtain outpatient records from an coordinate aftercare with her current providers - Assist the patient to learn and utilize healthy coping strategies - Family meeting if indicated 2/6 - Continue current meds - Family meeting this afternoon. 2/6 - Continue current medications. (2) Alcohol abuse 2/5 - Abstain from alcohol for the foreseeable future - Recommend outpatient substance use treatment - The patient's AUDIT score suggests problematic drinking (Zone III WHO). Brief intervention was offered and accepted Intervention (if performed) was greater than 5 min in length. Brief interventions include: 1. Assess Readiness to Quit, 2. Advise: Help Patient to Reduce or Abstain from Alcohol, 3. Agree: Set Specific, Feasible Goals, 4. Assist: Anticipate barriers, Problem-Solving Solutions. Social work to 5. Arrange: Referrals to appropriate treatment. Summary of intervention: The patient is in precontemplation stage with regards to transtheoretical model of change. The patient is advised to decrease alcohol consumption due to depressant effects and risk of interactions with prescription medications. The patient agreed to stopping her drinking and will be provided with recovery materials to continue to education self on how to cope with their condition without drinking. Discharge / Aftercare Planning Primary Care Physician: Name: Dr. Alfie Prather Psychiatrist: Name: Martina Johnson Date of Appointment: May 13, 2017 Time of Appointment: 8:45 am Appointment Notes: [address] [facility] [place] [address] Therapist: Name: Rola Cuenca Date of Appointment: Apr 28, 2017 Time of Appointment: 3:00 pm Appointment Notes: [address] [facility] [address] [place] [address] Visit Code E&M Code: 66087 Inventory Assets Strengths: Intelligence, desire to get better Needs: To abstain from alcohol and any other abusable substance Risk Factors Assessment : Yes /single/: Yes Higher / Fall in social status: No Health problems: No Mental Health Diagnoses: Yes Substance use disorders: Yes Previous attempt: Yes Previous psychiatric stay: No Hopelessness: No Smoker: No Protective Factors Assessment Sabianism beliefs: No : No Responsible for young children: No Employed: No Stable relationships: No Supportive family: Yes Good rapport with provider: Yes Data Vital Signs Last 24 Hrs: Date Time Temp Pulse Resp B/P (MAP) Pulse Ox O2 Delivery O2 Flow Rate FiO2 04/23/17 06:56 36.8 64 16 105/69 61 119/85 04/22/17 21:42 36.8 83 18 124/85 04/22/17 17:10 36.8 86 16 134/93 Meds Administered Last 24 Hrs: Meds Administered (Past 24Hrs) Medications (Trade) Dose Ordered Sig/Mindy Route Start Time Stop Time Status Last Admin Dose Admin Ethinyl Estradiol/ Norethindrone (Junel (21 Day)) 1 tab DAILY@1700 PO 04/21/17 17:00 05/21/17 16:59 04/22/17 17:13 1 TAB Lamotrigine (Lamictal Tab) 25 mg HS PO 04/21/17 22:00 05/21/17 21:59 04/22/17 21:47 25 MG Non-Formulary Medication (Non-Formulary Patient'S Own Med) 1 ea HS EXT 04/22/17 22:00 05/22/17 21:59 04/22/17 21:47 1 EA
[2017-04-23] MEDS: ETHINYL ESTRAD PO SCH (17:04)
[2017-04-23] MEDS: NORETHINDRONE PO SCH (17:04)
[2017-04-23] MEDS: RETIN A EXT SCH (21:22)
[2017-04-24 06:55] VITALS: BP_SYST 114; BP_SYST 99; BP_DIAS 61; BP_DIAS 72; PULSE 67; PULSE 94; TEMP 36.9
[2017-04-24] MEDS: ARIPIprazole TAB 5 MG TAB PO SCH (08:47)
[2017-04-24] MEDS: MULTIVITAMIN TAB PO SCH (08:47)
[2017-04-24] MEDS: CETIRIZINE HCL 10 MG TAB PO SCH (08:47)
[2017-04-24] MEDS ORDERED: LMC25 PO (08:56)
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
[2017-04-24] MEDS ORDERED: DESTROY THIS MEDICATION SCH (11:15)
== END 2017-04-24 11:02 | disposition home or self-care (01) | DRG 885 ==
LOC: EDBD 04:00 → C.EDB 04:01 → C.MHU 13:16
PROVIDERS: ADMIT Psychiatry & Neurology Psychiatry; ATTEND Psychiatry & Neurology Psychiatry
DX: F31.89 Other bipolar disorder (principal); R45.851 Suicidal ideations; L51.1 Stevens-Johnson syndrome; T43.595A Adverse effect of other antipsychotics and neuroleptics, initial encounter; T51.0X2A Toxic effect of ethanol, intentional self-harm, initial encounter; F10.129 Alcohol abuse with intoxication, unspecified; Y90.9 Presence of alcohol in blood, level not specified; J45.909 Unspecified asthma, uncomplicated; Z79.899 Other long term (current) drug therapy; Z91.048 Other nonmedicinal substance allergy status; Z82.49 Family history of ischemic heart disease and other diseases of the circulatory system; Z83.3 Family history of diabetes mellitus; Z81.8 Family history of other mental and behavioral disorders

== ENCOUNTER 2017-06-20 01:48 | Emergency (ER) | payer BC ==
[~2017-06-20] VITALS: Ht 165.1 cm; Wt 57.5 kg
[~2017-06-20 01:48] MED LIST changes: -AZEL30SP NAE; +CETI10TA84 PO; +LMC25 PO; +MULT-506 PO; -TOPI25TA99 PO
[2017-06-20 01:56] VITALS: Ht 165.1 cm; Wt 57.5 kg
[2017-06-20 02:30] LABS: CREATININE 0.8 mg/dl (0.60-1.20)
[2017-06-20 02:31] LABS: CALCIUM 8.8 mg/dl (8.5-10.1)
--- NOTE | 2017-06-20 03:15 | EMERGENCY ROOM VISIT NOTE ---
History First contact with patient: 01:50 Chief Complaint: ALCOHOL OVERDOSE Stated Complaint: ALCOHOL Nursing Triage Summary: patient was drinking liquor today. was picked up by police after having a fall. has abrasions to bilateral knees, right side of face and left hand. Patient cooperative History of Present Illness The patient is a 21 year old female who presents to the Emergency Room via EMS for evaluation of alcohol intoxication. The patient arrives with a friend at bedside. The patient admits to drinking a significant amount of liquor tonight. She was having difficulty walking and her friend was helping her, and she suite and they both fell. The patient then fell again while walking with another friend. Both falls were from standing and she sustained some abrasions to both of her knees and the right forehead. She denies any drug use. She denies any complaints at this time. The patient reports a history of bipolar disorder but is otherwise healthy. Review of Systems A complete 10 point review of systems was reviewed with the patient with pertinent positives and negatives as per history of present illness. All else were negative. Past Medical/Surgical History Medical Problems: (1) Asthma (2) Bipolar disorder (3) Bipolar I disorder, most recent episode depressed, severe without psychotic features Family History Cancer Diabetes mellitus Hypertension Social History Smoking Status: Never Smoker Alcohol Use: heavy Marital Status: single Housing Status: lives with roommate Occupation Status: [employer] student Current/Historical Medications Scheduled Aripiprazole (Abilify), 5 MG PO DAILY Control Pills ( Control Pills), 1 TAB PO DAILY Cetirizine (Zyrtec), 10 MG PO DAILY Lamotrigine (Lamictal), 50 MG PO HS Multivitamin (Multivitamin), 1 TAB PO DAILY Physical Exam Vital Signs Date Time Temp Pulse Resp B/P (MAP) Pulse Ox O2 Delivery O2 Flow Rate FiO2 06/20/17 11:17 92 117/95 100 06/20/17 09:38 99 16 105/66 98 Room Air 06/20/17 08:31 107 18 107/70 99 Room Air 06/20/17 07:54 36.6 06/20/17 07:14 80 18 105/70 98 Room Air 06/20/17 06:00 99 16 94/61 96 Room Air 06/20/17 05:51 101 06/20/17 05:00 89 16 95/53 96 Room Air 06/20/17 04:00 88 16 100/56 96 Room Air 06/20/17 03:13 98 16 123/76 98 Room Air 06/20/17 02:14 119 06/20/17 01:56 104 12 117/88 100 Room Air Physical Exam VITALS: Vitals are noted on the nurse's note and reviewed by myself. Vital signs stable. GENERAL: This is a 21-year-old female, sitting up in bed, appears to be visibly intoxicated, smells of ETOH. SKIN: The skin was without erythema, edema, or bruising. HEAD: Normocephalic atraumatic. EARS: External auditory canals clear. No hemotympanum. EYES: Pupils equal round and reactive to light and accommodation. NOSE: No deformities noted. MOUTH: No loose or chipped teeth. NECK: No cervical spine tenderness. HEART: Regular rate and rhythm without murmurs gallops or rubs. LUNGS: Clear to auscultation bilaterally without wheezes, rales or rhonchi. ABDOMEN: Soft, nontender. MUSCULOSKELETAL: Full range of motion throughout. Strength intact throughout. NEURO: Patient was alert and oriented to person place and time. Speech slurred. Gross sensation intact. Patient cooperative with examiner and answers all questions appropriately. Medical Decision & Procedures Laboratory Results 06/20/17 02:03 Test 06/20/17 02:03 Anion Gap 5.0 mmol/L (3-11) Est Creatinine Clear Calc Drug Dose 100.1 ml/min Estimated GFR () 122.2 Estimated GFR (Non- 105.4 BUN/Creatinine Ratio 10.3 (10-20) Calcium Level 8.8 mg/dl (8.5-10.1) Human Chorionic Gonadotropin, Qual NEG (NEG) Ethyl Alcohol mg/dL 353.0 mg/dl (0-3) Medications Administered Medications (Trade) Dose Ordered Sig/Mindy Route Start Time Stop Time Status Last Admin Dose Admin Ondansetron HCl (Zofran Odt) 4 mg ONE ONCE PO 06/20/17 03:30 06/20/17 03:31 DC 06/20/17 03:25 4 MG Potassium Chloride (Klor-Con M10) 40 meq NOW STAT PO 06/20/17 10:55 06/20/17 10:56 DC 06/20/17 11:09 40 MEQ Medical Decision Differential diagnosis includes alcohol intoxication, drug use, infection, hypoglycemia, head trauma, among others. The patient is a 21-year-old female who presents today for evaluation of probable alcohol intoxication. Labs revealed an alcohol of 353. Kidney function was found to be within normal limits. Labs were otherwise unremarkable. There is no evidence of significant head trauma or infection on exam. Patient did complain of some vague hand pain, although it was difficult to elicit the source of the patient's pain due to her intoxication. For this reason, I deferred imaging until the patient was able to be reevaluated in the morning. Care of the patient was signed out to Ayden Garza PA-C at change of shift pending reevaluation. Please see his dictation for patient disposition. Medication Reconcilliation Current Medication List: was personally reviewed by me Blood Pressure Screening Patient's blood pressure: Normal blood pressure Impression Primary Impression: Alcohol use with intoxication Departure Information Dispostion Home / Self-Care Condition GOOD Referrals [facility] (PCP) Patient Instructions My [facility] Additional Instructions You were evaluated in emergency department for intoxication. This is a sign of Alcohol Abuse and should not be taken lightly. You had a blood alcohol level that was significantly elevated. Over the next 24 hours keep well hydrated and eat light meals. Don't drink any more alcohol. This is important. Unless an exceptional circumstance, the Hospital DOES NOT contact anyone during your visit, nor is your Protected Medical Information released to anyone without your approval/request. This means we do not contact your Parents, the Police, [facility], etc. However, you will likely receive a bill from the Hospital and/or your Insurance company, which will usually be sent to the Primary Policy Gill (often one's Parents) If your incident was on campus, or if the Police were involved, they will often contact the University to make them aware of what happened. Often this will result in you being required to take Alcohol Education classes (ie BASICS class) . Please see information given to you at discharge regarding contact for this. If the Police were involved you will likely be cited for public intoxication. Please contact either [facility] Police or the [place] Police for further information. Call 911 or return to Emergency Department if you develop: Passing out, difficulty breathing, many episodes of vomiting, blood in vomit or stool, abdominal pain, fevers, or other severe symptoms. We are always here to help if you feel you need further evaluation or treatment.
[2017-06-20] MEDS ORDERED: ONDANSETRON 4MG OD TAB PO ONE (03:30)
[2017-06-20] MEDS ORDERED: LAMO25TA PO (03:55)
[2017-06-20 07:54] VITALS: TEMP 36.6
--- NOTE | 2017-06-20 08:15 | DIAGNOSTIC IMAGING REPORT ---
R HAND MIN 3 VIEWS ROUTINE CLINICAL HISTORY: R hand injury, swelling COMPARISON: None FINDINGS: Note is made of an acute mildly displaced comminuted fracture within the base of the right fifth metacarpal with suspected intra-articular extension. There is associated soft tissue swelling. No additional fractures are identified.. IMPRESSION: Acute mildly displaced comminuted fracture of the base of the right fifth metacarpal with suspected intra-articular extension. Electronically signed by: Chilo Pickett M.D. 06/20/2017 8:13 AM Dictated Date/Time: 06/20/2017 8:10 AM
[2017-06-20] MEDS ORDERED: POTASSIUM CHLORIDE 10 MEQ TABCR PO STA (10:55)
--- NOTE | 2017-06-20 10:58 | EMERGENCY ROOM VISIT NOTE ---
ED Visit Note Case was signed out to me at time of shift change, 0700 hrs on 06/20/17. She has an elevated ETOH level requiring further monitoring here in the ED until she continues to further sober. I was called to bedside around 0800 hrs as the pt was fully coherent, and was ambulating without difficulty to the bathroom. She notes that she has right hand pain. X-ray was obtained. There is a metacarpal fracture. I did discuss this with the on-call orthopedic doctor because of the intra-articular extension. This was Dr. Jackson. He recommended obtaining a CT of the R hand fx for better visualization and then splinting with outpatient follow-up. His office will call the patient to follow -up for Friday. This was obtained. Ulnar gutter volar Ortho-Glass splint was applied. She declined pain medication. She is to follow with orthopedics on Friday. She is observed here and notes no other areas of pain. She is coherent , answering questions appropriately, and is ambulate without difficulty. She was discharged with friend in good condition. She is to return with worsening. She was given 40meq of potassium chloride PO here for her hypokalemia. The patient was educated upon management, had questions answered prior to discharge , and was discharged home in good condition. IMAGING: R HAND MIN 3 VIEWS ROUTINE CLINICAL HISTORY: R hand injury, swelling COMPARISON: None FINDINGS: Note is made of an acute mildly displaced comminuted fracture within the base of the right fifth metacarpal with suspected intra-articular extension. There is associated soft tissue swelling. No additional fractures are identified.. IMPRESSION: Acute mildly displaced comminuted fracture of the base of the right fifth metacarpal with suspected intra-articular extension. Electronically signed by: Chilo Pickett M.D. 06/20/2017 8:13 AM Dictated Date/Time: 06/20/2017 8:[address] DOSE: 98.74 mGycm HISTORY: R 5th metacarpal base fx TECHNIQUE: Multiaxial CT images of the right hand were performed and reformatted in the sagittal and coronal plane without the use of contrast. A dose lowering technique was utilized adhering to the principles of ALARA. COMPARISON: Right hand 06/20/2017 FINDINGS: Confirmation of the nondisplaced fracture seen at the base of the fifth metatarsal. This extends to the carpometacarpal joint. No dislocation. Mild soft tissue swelling at the fifth metacarpal. There may also be a subtle nondisplaced fracture at the base of the fourth metacarpal. This is also nondisplaced. IMPRESSION: 1. Nondisplaced fracture at the base of the fifth metatarsal. 2. Possible subtle nondisplaced fracture at the base of the fourth metacarpal. Electronically signed by: Abel Gomez M.D. 06/20/2017 11:06 AM Dictated Date/Time: 06/20/2017 11:03 AM Problem List Medical Problems: (1) Asthma Status: Chronic Current/Historical Medications Scheduled Aripiprazole (Abilify), 5 MG PO DAILY Control Pills ( Control Pills), 1 TAB PO DAILY Cetirizine (Zyrtec), 10 MG PO DAILY Lamotrigine (Lamictal), 50 MG PO HS Multivitamin (Multivitamin), 1 TAB PO DAILY Allergies Coded Allergies: Animal Dander (Unverified Allergy, Severe, ITCHY WATERY EYES, 04/20/17) Uncoded Allergies: SEASONAL (Allergy, Intermediate, ., 03/28/17) Vital Signs Date Time Temp Pulse Resp B/P (MAP) Pulse Ox O2 Delivery O2 Flow Rate FiO2 06/20/17 11:17 92 117/95 100 06/20/17 09:38 99 16 105/66 98 Room Air 06/20/17 08:31 107 18 107/70 99 Room Air 06/20/17 07:54 36.6 06/20/17 07:14 80 18 105/70 98 Room Air 06/20/17 06:00 99 16 94/61 96 Room Air 06/20/17 05:51 101 06/20/17 05:00 89 16 95/53 96 Room Air 06/20/17 04:00 88 16 100/56 96 Room Air 06/20/17 03:13 98 16 123/76 98 Room Air 06/20/17 02:14 119 06/20/17 01:56 104 12 117/88 100 Room Air Laboratory Results 06/20/17 02:03 Test 06/20/17 02:03 Anion Gap 5.0 mmol/L (3-11) Est Creatinine Clear Calc Drug Dose 100.1 ml/min Estimated GFR () 122.2 Estimated GFR (Non- 105.4 BUN/Creatinine Ratio 10.3 (10-20) Calcium Level 8.8 mg/dl (8.5-10.1) Human Chorionic Gonadotropin, Qual NEG (NEG) Ethyl Alcohol mg/dL 353.0 mg/dl (0-3) Medications Administered Medications (Trade) Dose Ordered Sig/Mindy Route Start Time Stop Time Status Last Admin Dose Admin Ondansetron HCl (Zofran Odt) 4 mg ONE ONCE PO 06/20/17 03:30 06/20/17 03:31 DC 06/20/17 03:25 4 MG Potassium Chloride (Klor-Con M10) 40 meq NOW STAT PO 06/20/17 10:55 06/20/17 10:56 DC 06/20/17 11:09 40 MEQ Departure Information Impression Primary Impression: Alcohol use with intoxication Additional Impression: Hypokalemia Dispostion Home / Self-Care Condition GOOD Referrals [facility] (PCP) Alex Jackson MD Forms HOME CARE DOCUMENTATION FORM, IMPORTANT VISIT INFORMATION Patient Instructions Hypokalemia Dc, [facility] Additional Instructions You were evaluated in emergency department for intoxication. This is a sign of Alcohol Abuse and should not be taken lightly. You had a blood alcohol level that was significantly elevated. Please refer to the attached sheet for foods high in potassium. Your potassium was low today I do recommend having it repeated with your family doctor/ [facility] services. There is a fracture of your right hand. Please call orthopedics to schedule follow-up. They may also call you to schedule follow-up. Please keep the splint in place and do not get it wet. You may use [id number] ibuprofen/Tylenol for pain. Please ice this area. Over the next 24 hours keep well hydrated and eat light meals. Don't drink any more alcohol. This is important. Unless an exceptional circumstance, the Hospital DOES NOT contact anyone during your visit, nor is your Protected Medical Information released to anyone without your approval/request. This means we do not contact your Parents, the Police, [facility], etc. However, you will likely receive a bill from the Hospital and/or your Insurance company, which will usually be sent to the Primary Policy Gill (often one's Parents) If your incident was on campus, or if the Police were involved, they will often contact the University to make them aware of what happened. Often this will result in you being required to take Alcohol Education classes (ie BASICS class) . Please see information given to you at discharge regarding contact for this. If the Police were involved you will likely be cited for public intoxication. Please contact either [facility] or the [place] Police for further information. Call 911 or return to Emergency Department if you develop: Passing out, difficulty breathing, many episodes of vomiting, blood in vomit or stool, abdominal pain, fevers, or other severe symptoms. We are always here to help if you feel you need further evaluation or treatment. Problem Qualifiers
--- NOTE | 2017-06-20 11:07 | DIAGNOSTIC IMAGING REPORT ---
RIGHT HAND CT CT DOSE: 98.74 mGycm HISTORY: R 5th metacarpal base fx TECHNIQUE: Multiaxial CT images of the right hand were performed and reformatted in the sagittal and coronal plane without the use of contrast. A dose lowering technique was utilized adhering to the principles of ALARA. COMPARISON: Right hand 06/20/2017 FINDINGS: Confirmation of the nondisplaced fracture seen at the base of the fifth metatarsal. This extends to the carpometacarpal joint. No dislocation. Mild soft tissue swelling at the fifth metacarpal. There may also be a subtle nondisplaced fracture at the base of the fourth metacarpal. This is also nondisplaced. IMPRESSION: 1. Nondisplaced fracture at the base of the fifth metatarsal. 2. Possible subtle nondisplaced fracture at the base of the fourth metacarpal. Electronically signed by: Abel Gomez M.D. 06/20/2017 11:06 AM Dictated Date/Time: 06/20/2017 11:03 AM
[2017-06-20 11:17] VITALS: BP 117/95; PULSE 92; O2SAT 100
== END 2017-06-20 11:19 | disposition home or self-care (01) ==
LOC: EDBD 01:48 → C.EDB 01:50
DX: F10.929 Alcohol use, unspecified with intoxication, unspecified (principal); Y90.8 Blood alcohol level of 240 mg/100 ml or more; E87.6 Hypokalemia; S62.316A Displaced fracture of base of fifth metacarpal bone, right hand, initial encounter for closed fracture; W19.XXXA Unspecified fall, initial encounter; S00.81XA Abrasion of other part of head, initial encounter; S80.211A Abrasion, right knee, initial encounter; S80.212A Abrasion, left knee, initial encounter; F31.9 Bipolar disorder, unspecified; J45.909 Unspecified asthma, uncomplicated; Z80.9 Family history of malignant neoplasm, unspecified; Z83.3 Family history of diabetes mellitus; Z82.49 Family history of ischemic heart disease and other diseases of the circulatory system; Z79.3 Long term (current) use of hormonal contraceptives; Z79.899 Other long term (current) drug therapy

== ENCOUNTER → 2017-07-01 | Outpatient (CLI) | payer BC ==
[~2017-07-01] MED LIST changes: +LAMO25TA PO; -LMC25 PO
== END | disposition home or self-care (01) ==
LOC: C.RDSM 09:51
PROVIDERS: ATTEND Orthopaedic Surgery Sports Medicine
DX: S62.308A Unspecified fracture of other metacarpal bone, initial encounter for closed fracture (principal); X58.XXXA Exposure to other specified factors, initial encounter

== ENCOUNTER → 2017-07-17 | Outpatient (CLI) | payer BC | END | disposition home or self-care (01) | LOC: C.RDSM 11:49 | PROVIDERS: ATTEND Orthopaedic Surgery Sports Medicine | DX: S62.308A Unspecified fracture of other metacarpal bone, initial encounter for closed fracture (principal); X58.XXXA Exposure to other specified factors, initial encounter ==